=== PATIENT | male | born 1940 | race Caucasian/White ===

== ENCOUNTER 2018-05-05 12:10 | Day surgery (SDC) | payer MEDICARE ==
[~2018-05-05] VITALS: Ht 170.2 cm; Wt 137.0 kg
[2018-05-05] VITALS (9 sets, daily range): BP systolic 117–169; BP diastolic 73–107
[2018-05-05] MEDS ORDERED: sod bicarbonate 150mEq in D5W 1,150 ML IV ONE (12:40)
[2018-05-05] MEDS ORDERED: normal saline 1000ml 1,000 ML IV SCH (12:45)
[2018-05-05] MEDS ORDERED: HYDROCORT PO ×2 (12:58→12:59)
[2018-05-05] MEDS ORDERED: LIDOcaine 1% (10mg/ml)w/preservative injection 20ml MDV ONE (12:58)
[2018-05-05] MEDS ORDERED: iohexol 350 MG/ML 50ML vial IV ONE ×2 (12:58→14:02)
[2018-05-05] MEDS ORDERED: ROSU20TA2 PO (12:59)
[2018-05-05] MEDS ORDERED: iohexol 350MG/ML 100ml bottle IV ONE (12:59)
[2018-05-05] MEDS ORDERED: fentaNYL/PF 50MCG/1 ML 2ML syringe ONE (13:01)
[2018-05-05] MEDS ORDERED: LEVO125T8 PO (13:01)
[2018-05-05] MEDS ORDERED: midazolam 2 mg/2 ml injection ONE (13:01)
[2018-05-05 13:03] LABS: BASOPHILS % (AUTO) 0.5 % (0-1); EOSINOPHILS # (AUTO) 0.1 X10'3 (0-0.9); EOSINOPHILS % (AUTO) 0.7 % (0-6); HEMATOCRIT 57.2 % (42.0-52.0); LYMPHOCYTES # (AUTO) 0.8 X10'3 (1.1-4.8); LYMPHOCYTES % (AUTO) 9.1 % (21-51); MEAN CORPUSCULAR HEMOGLOBIN 28.9 PG (27.0-31.0); MEAN CORPUSCULAR HGB CONC 33.7 g/dL (33.0-36.5); MEAN CORPUSCULAR VOLUME 85.8 FL (78-98); MEAN PLATELET VOLUME 9.2 FL (7.4-10.4); MONOCYTES # (AUTO) 0.9 X10'3 (0-0.9); MONOCYTES % (AUTO) 9.4 % (2-12); NEUTROPHILS # (AUTO) 7.4 X10'3 (1.8-7.7); NEUTROPHILS % (AUTO) 80.3 % (42-75); PLATELET COUNT 135 X10'3 (140-440); RED BLOOD COUNT 6.67 X10'6 (4.70-6.10); RED CELL DISTRIBUTION WIDTH 19.4 % (11.5-14.5); WHITE BLOOD COUNT 9.2 X10'3 (4.5-11.0)
[2018-05-05] MEDS ORDERED: MULT-933 PO (13:03)
[2018-05-05] MEDS ORDERED: CHOL100046 PO (13:05)
[2018-05-05] MEDS ORDERED: RIVA20TA PO (13:06)
[2018-05-05 13:09] LABS: ALBUMIN 3.3 G/DL (3.4-5.0); ANION GAP 11 (8-16); BLOOD UREA NITROGEN 23 MG/DL (7-18); BUN/CREATININE RATIO 15.6 (5.4-32.0); CALCIUM 9.4 MG/DL (8.5-10.1); CHLORIDE 103 MMOL/L (99-107); CREATININE 1.47 MG/DL (0.60-1.10); GLUCOSE 95 MG/DL (70-104); MAGNESIUM 1.9 MG/DL (1.5-2.4); POTASSIUM 4.2 MMOL/L (3.5-5.1); SODIUM 140 MMOL/L (135-145); TOTAL CARBON DIOXIDE 26.4 MMOL/L (24-32); eGFR 47 ML/MIN
[2018-05-05 13:12] LABS: HEMOGLOBIN 19.3 g/dl (14.0-17.9)
[2018-05-05 13:23] LABS: HDL CHOLESTEROL 19 MG/DL (35-60); LDL CHOLESTEROL 80 MG/DL (50-100)
[2018-05-05 13:27] LABS: CHOL/HDL RATIO 4.7 (0.00-4.99); CHOLESTEROL 89 MG/DL (0-200); TRIGLYCERIDES 66 MG/DL (20-135)
[2018-05-05] MEDS ORDERED: FURO-150 PO (13:31)
[2018-05-05] MEDS ORDERED: HYDROCORT (13:34)
[2018-05-05] MEDS ORDERED: LISI-600 PO (13:37)
[2018-05-05] MEDS ORDERED: POTA20PA40 PO (13:38)
[2018-05-05] MEDS ORDERED: diphenhydrAMINE 50 mg/ml inj ONE (13:43)
[2018-05-05 13:50] LABS: INR 1.4 INR; PROTHROMBIN TIME 13.6 SECONDS (9.0-12.0)
[2018-05-05] MEDS ORDERED: adenosine kit for FFR above 120KG-Cath lab only IV ONE ×2 (14:05→14:17)
[2018-05-05] MEDS ORDERED: heparin 1,000unit/ml 10ml vial 10 ML ONE (14:06)
== END 2018-05-05 18:00 | disposition home or self-care (01) ==
LOC: SSTAY O 12:10
PROVIDERS: ATTEND Internal Medicine Cardiovascular Disease
DX: I25.10 Atherosclerotic heart disease of native coronary artery without angina pectoris (principal); I27.20 Pulmonary hypertension, unspecified; I25.2 Old myocardial infarction; I48.2 Chronic atrial fibrillation; Z79.01 Long term (current) use of anticoagulants; J44.9 Chronic obstructive pulmonary disease, unspecified; G47.30 Sleep apnea, unspecified; E66.9 Obesity, unspecified
CPT/HCPCS: 36415; 80048; 80061; 83735; 84439; 84443; 84480; 85025; 85610; 93005; 93459; 93571; 99152; 99153; A6257; C1769; J0153; J1200; J1644; J2001; J2250; J3010; Q9967; C1760; C1894

== ENCOUNTER 2023-07-08 10:26 | Day surgery (SDC) | payer MEDICARE ==
[2023-07-08] VITALS (13 sets, daily range): BP systolic 131–155; BP diastolic 63–98; PULSE 89–116; RESP 12–15; TEMP 97.8; O2SAT 96–100
[~2023-07-08] VITALS: Ht 167.6 cm; Wt 126.1 kg
[~2023-07-08 10:26] MED LIST: CHOL100046 PO; FURO-150 PO; HYDROCORT; HYDROCORT PO; LEVO125T8 PO; LISI20TA28 PO; MULT-933 PO; POTA20PA40 PO; RIVA20TA PO; ROSU20TA2 PO
[2023-07-08] MEDS ORDERED: fentaNYL/PF 50MCG/1 ML 2ML syringe IV ONE (10:50)
[2023-07-08] MEDS: normal saline 1000ml 1,000 ML IV SCH (10:50)
[2023-07-08 11:24] LABS: BASOPHILS # (AUTO) 0.1 X10'3 (0-0.2); BASOPHILS % (AUTO) 0.5 % (0-1); EOSINOPHILS # (AUTO) 0.1 X10'3 (0-0.9); EOSINOPHILS % (AUTO) 0.6 % (0-6); HEMATOCRIT 35.2 % (42.0-52.0); HEMOGLOBIN 11.6 g/dl (14.0-17.9); LYMPHOCYTES # (AUTO) 0.7 X10'3 (1.1-4.8); LYMPHOCYTES % (AUTO) 4.9 % (21-51); MEAN CORPUSCULAR HEMOGLOBIN 29.6 PG (27.0-31.0); MEAN CORPUSCULAR VOLUME 89.7 FL (78-98); MEAN PLATELET VOLUME 7.4 FL (7.4-10.4); MONOCYTES % (AUTO) 7.3 % (2-12); NEUTROPHILS # (AUTO) 11.8 X10'3 (1.8-7.7); NEUTROPHILS % (AUTO) 86.7 % (42-75); PLATELET COUNT 269 X10'3 (140-440); RED BLOOD COUNT 3.93 X10'6 (4.70-6.10); RED CELL DISTRIBUTION WIDTH 17.9 % (11.5-14.5); WHITE BLOOD COUNT 13.7 X10'3 (4.5-11.0)
[2023-07-08 11:36] LABS: ALBUMIN 2.6 G/DL (3.4-5.0); ANION GAP 12 (8-16); BLOOD UREA NITROGEN 27 MG/DL (7-18); BUN/CREATININE RATIO 4.6 (10.0-20.0); CALCIUM 8.5 MG/DL (8.5-10.1); CHLORIDE 97 MMOL/L (99-107); CREATININE 5.91 MG/DL (0.60-1.10); GLUCOSE 127 MG/DL (70-104); MAGNESIUM 1.9 MG/DL (1.5-2.4); POTASSIUM 3.6 MMOL/L (3.5-5.1); SODIUM 135 MMOL/L (135-145); TOTAL CARBON DIOXIDE 25.8 MMOL/L (24-32); eCRCL 9 ML/MIN; eGFR 9 ML/MIN
[2023-07-08] MEDS ORDERED: ZINC220T3 PO (11:55)
[2023-07-08] MEDS ORDERED: FOLI1TAB27 PO (11:55)
[2023-07-08] MEDS ORDERED: TEST75GE10 TOP (11:55)
[2023-07-08] MEDS ORDERED: ROSU40TA22 PO (11:55)
[2023-07-08] MEDS ORDERED: ALBU18HF2 INH (11:55)
[2023-07-08] MEDS ORDERED: FURO40TA4 PO (11:55)
[2023-07-08] MEDS ORDERED: CYAN250010 PO (11:55)
[2023-07-08] MEDS ORDERED: CHOL200013 PO (11:55)
[2023-07-08] MEDS ORDERED: POTA-207 PO (11:55)
[2023-07-08] MEDS ORDERED: HYDR-4318 PO (11:55)
[2023-07-08] MEDS ORDERED: HYDR20TA24 PO (11:55)
[2023-07-08] MEDS ORDERED: ASCO500C17 PO (11:55)
[2023-07-08] MEDS ORDERED: LEVO175T2 PO (11:55)
[2023-07-08] MEDS ORDERED: FLUT1BLS16 INH (11:55)
[2023-07-08] MEDS ORDERED: APIX5TAB3 PO (11:55)
[2023-07-08] MEDS: MIDAZolam 1mg/ml 10ml vial IV ONE (13:00)
[2023-07-08] MEDS: fentaNYL/PF 50MCG/1 ML 2ML syringe IV ONE (13:00)
[2023-07-08] MEDS: glycopyrrolate 0.2mg/ml inj IV ONE (13:01)
== END 2023-07-08 14:25 | disposition home or self-care (01) ==
LOC: SSTAY O 10:26
PROVIDERS: ATTEND Internal Medicine Cardiovascular Disease
DX: I08.1 Rheumatic disorders of both mitral and tricuspid valves (principal); Z95.1 Presence of aortocoronary bypass graft
CPT/HCPCS: 36415; 80048; 83735; 85025; 93312; J2250; J3010; J3490; J7030